=== PATIENT | male | born 1935 | race Two or more races ===

== ENCOUNTER 2024-09-04 09:32 | Emergency (ER) | payer MEDICARE, OTHER ==
[~2024-09-04] VITALS: Ht 193 cm; Wt 86.3 kg
[2024-09-04] MEDS ORDERED: VENL75CA3 PO (11:04)
--- NOTE | 2024-09-04 11:04 | ED.PDOC ---
History of Present Illness HPI Comments This is a 88-year-old gentleman that is here with a longstanding history of depression. He states it happened to him previously he never really tried to hurt himself but he saw his doctor who put him on Effexor 75 mg b.i.d.. He states the medicine really worked very well he stopped it because he was doing well but recently he has been more depressed. When asked he has says there is nothing specific that is going on but he does want to restart the medication he is here for a refill only. Denies any suicidal ideation or thoughts to hurt himself. Chief Complaint: Mental Health Time Seen by MD: 10:58 Primary Care Provider: BRUCE Reviewed Notes: Nurses Notes, Medications, Allergies Information Source: Patient Mode of Arrival: Wheelchair Past Medical History PAST MEDICAL HISTORY: Depression, DM, High Lipids, HTN Surgical History (Other): Stents x6 Social History Smoker: Cigarettes Alcohol: Denies ETOH Use Drugs: Denies Drug Use Lives In: Home Psychiatric: reports: depression All Other Systems: Reviewed and Negative Physical Exam General Appearance: No Apparent Distress, Normal HEENT: Normal ENT Inspection, PERRL/EOMI, TMs Normal Neck: Non-Tender, Normal Inspection Respiratory: Lungs Clear, None, Normal Breath Sounds Cardiovascular: Regular Rate/Rhythm Breast Exam: Deferred Gastrointestinal: Non Tender, Soft Genitalia: Deferred Pelvic: Deferred Rectal: Deferred Extremities: Normal inspection, Normal range of motion Neurologic: Alert, Normal Mood Cerebellar Function: NOT DONE Reflexes: NOT DONE Skin: Dry, Warm Lymphatic: No Adenopathy Was a procedure done? Was a procedure done?: No Differential Dx Considerations may include: Suicidal versus suicidal intent X-Ray, Labs, Meds, VS Vital Signs Date Time Temp Pulse Resp B/P (MAP) Pulse Ox O2 Delivery O2 Flow Rate FiO2 09/04/24 09:38 98.3 107 18 151/63 (92) 97 X-Ray, Labs, Meds, VS Comment Patient seen and examined by me. Patient is here only for a refill of medications. He states he had Effexor before which helped him significantly and then he got better he stopped taking the medicine he ran out now he is having a burst of depression again and he would like meds.. Denies any suicidal intent or ideation to hurt himself. Time of 1ST Reevaluation: 11:01 Reevaluation 1ST: Improved Patient Education/Counseling: Diagnosis, Treatment, Prognosis, Need For Follow Up Family Education/Counseling: No Family Present Departure 1 Departure Time of Disposition: 11:01 Impression: Primary Impression: Depression Additional Impression: Encounter for medication refill Disposition: 01 HOME / SELF CARE / HOMELESS Condition: Good Additional Instructions: Please follow-up with your regular provider for more medication refills Time if you feel your going to hurt herself come back to the ER e-Prescriptions Venlafaxine Hydrochloride (Effexor Xr) 75 Mg Cap 1 CAP PO BID, #60 CAP 1 Refill Prov: JESÚS CARRANZA 09/04/24 Discharged With: Self Critical Care Note Critical Care Time?: No Stability Stability form required: JESÚS Weiner Sep 04, 2024 11:04
[2024-09-04 11:07] VITALS: BP 143/72; PULSE 100; RESP 20; TEMP 98; O2SAT 98
== END 2024-09-04 11:12 | disposition home or self-care (01) ==
LOC: ER 09:32
DX: F32.A Depression, unspecified (principal); Z76.0 Encounter for issue of repeat prescription; E11.9 Type 2 diabetes mellitus without complications; F17.210 Nicotine dependence, cigarettes, uncomplicated; I10 Essential (primary) hypertension; E78.5 Hyperlipidemia, unspecified